=== PATIENT | female | born 1955 | race Caucasian/White ===

== ENCOUNTER 2021-11-03 21:51 | Emergency (ER) | payer OTHER ==
[~2021-11-03 21:51] MED LIST: ASPIRIN CHEWABL81 MG PO; ATIVAN1 MG PO; BACLOFEN 10MG T10 MG PO; BENADRYL25 MG PO; DICLOFENAC SODI75 MG PO; GLUCOPHAGE1000 MG PO; HUMALOG100 UNIT/1 SQ; LANTUS100 UNIT/1 SQ; LIPITOR20 MG PO; MAXZIDE 75 MG-1 EACH PO; NEURONTIN300 MG PO; PERCOCET 5/3251 TAB PO; TOPROL XL 50 MG50 MG PO; VICTOZA 2-0.6 MG/0.1 SQ; XARELTO10 MG PO; ZOLOFT100 M1 PO; ZYRTEC10 MG PO; [UNRECOGNIZED DRUG - OTHER] PO
== END 2021-11-03 23:46 | disposition home or self-care (01) ==
LOC: FER 21:51
DX: S00.03XA Contusion of scalp, initial encounter (principal); I10 Essential (primary) hypertension; E11.9 Type 2 diabetes mellitus without complications; W01.198A Fall on same level from slipping, tripping and stumbling with subsequent striking against other object, initial encounter; Y92.009 Unspecified place in unspecified non-institutional (private) residence as the place of occurrence of the external cause
CPT/HCPCS: 70450